=== PATIENT | female | born 1945 | race Caucasian/White ===

== ENCOUNTER 2016-12-05 14:30 | Inpatient (IN) | payer OTHER, MEDICAID ==
[~2016-12-05] VITALS: Ht 160 cm; Wt 86.3 kg
[2016-12-05] MEDS ORDERED: METFORMIN HCL500 MG PO (17:02)
[2016-12-05 17:03] LABS: BASOPHIL % 0.4 % (0-2); PLATELET COUNT 216 x10^3mcL (130-400); RED CELL DISTRIBUTION WIDTH 13.7 % (11.5-14.5)
[2016-12-05] MEDS ORDERED: LOSARTAN POTASS25 M1 PO (17:04)
[2016-12-05] MEDS ORDERED: ASPIRIN81 MG PO (17:04)
[2016-12-05] MEDS ORDERED: SIMVASTATIN10 M1 PO (17:04)
[2016-12-05 17:13] LABS: CALCIUM 8.7 mg/dL (8.5-10.1); CARBON DIOXIDE 30.2 mmol/L (21-32); CHLORIDE SERUM 105 mmol/L (98-107); CREATININE SERUM 0.6 mg/dL (0.6-1.0); GLUCOSE SERUM 87 mg/dL (74-106); POTASSIUM SERUM 3.6 mmol/L (3.5-5.1); SODIUM SERUM 139 mmol/L (136-145)
[2016-12-05 17:28] LABS: microscopic required? NO
[2016-12-05 17:34] LABS: ALKALINE PHOSPHATASE 66 U/L (46-116); ALT/SGPT 23 U/L (14-59); AST/SGOT 20 U/L (15-37); BILIRUBIN TOTAL 0.8 mg/dL (0.20-1.00); TOTAL PROTEIN, SERUM 6.7 g/dL (6.4-8.2)
[2016-12-05 17:34] LABS: UA SPECIFIC GRAVITY 1.015 (1.005-1.035); urine erythrocyte NEGATIVE (NEGATIVE)
[2016-12-05 17:35] LABS: ALBUMIN 3.3 g/dL (3.4-5.0)
[2016-12-05 19:57] LABS: CHOLESTEROL/HDL RATIO 3.1; MAGNESIUM 2.1 mg/dL (1.8-2.4); PHOSPHOROUS 4.2 mg/dL (2.5-4.9)
[2016-12-05 19:58] LABS: AMPHETAMINE QUAL UR NONE DETECTED (NEG <=1000)
[2016-12-05 20:06] VITALS: BP 114/63
[2016-12-05 20:06] LABS: T3 TOTAL 1.07 ng/mL
[2016-12-05 20:07] LABS: FREE T4 1.16 ng/dL (0.76-1.46); FREE THYROXINE INDEX 2.9 ug/dL (1.4-4.5); T4(THYROXINE) 8.2 ug/dL (4.7-13.3)
[2016-12-05 20:19] VITALS: Ht 160 cm; Wt 86.3 kg
[2016-12-05 22:19] VITALS: BP 104/50
[2016-12-06 05:47] VITALS: BP 114/51
[2016-12-06 06:22] LABS: BASOPHIL % 0.5 % (0-2); PLATELET COUNT 203 x10^3mcL (130-400); RED CELL DISTRIBUTION WIDTH 13.4 % (11.5-14.5)
[2016-12-06 06:29] LABS: CALCIUM 8.2 mg/dL (8.5-10.1); CARBON DIOXIDE 25.6 mmol/L (21-32); CHLORIDE SERUM 107 mmol/L (98-107); CREATININE SERUM 0.5 mg/dL (0.6-1.0); GLUCOSE SERUM 90 mg/dL (74-106); POTASSIUM SERUM 3.8 mmol/L (3.5-5.1); SODIUM SERUM 142 mmol/L (136-145)
[2016-12-06 08:53] VITALS: BP 150/69
[2016-12-06 13:41] VITALS: BP 146/83
[2016-12-06 18:06] VITALS: BP 127/56
[2016-12-06 21:16] VITALS: BP 113/54
[2016-12-07 05:39] VITALS: BP 126/67
[2016-12-07 06:22] LABS: CALCIUM 7.7 mg/dL (8.5-10.1); CARBON DIOXIDE 23.9 mmol/L (21-32); CHLORIDE SERUM 107 mmol/L (98-107); CREATININE SERUM 0.6 mg/dL (0.6-1.0); GLUCOSE SERUM 101 mg/dL (74-106); POTASSIUM SERUM 4.1 mmol/L (3.5-5.1); SODIUM SERUM 141 mmol/L (136-145)
[2016-12-07 06:39] LABS: BASOPHIL % 0.5 % (0-2); PLATELET COUNT 225 x10^3mcL (130-400); RED CELL DISTRIBUTION WIDTH 13.9 % (11.5-14.5)
[2016-12-07] MEDS ORDERED: GLUCOMETER (10:01)
[2016-12-07] MEDS ORDERED: LANCET DEVICE1 EACH SQ (10:03)
[2016-12-07] MEDS ORDERED: TEST STRIPS (10:04)
[2016-12-07 11:50] VITALS: BP 117/66
[2016-12-07 13:32] VITALS: BP 134/66
[2016-12-07 14:13] VITALS: BP 117/66
== END 2016-12-07 16:00 | disposition home health service (06) | DRG 64 ==
LOC: ED 14:30 → DU 17:38
PROVIDERS: Emergency Medicine; ADMIT Family Medicine
DX: I63.9 Cerebral infarction, unspecified (principal); N17.0 Acute kidney failure with tubular necrosis; G82.20 Paraplegia, unspecified; E44.0 Moderate protein-calorie malnutrition; D68.69 Other thrombophilia; R29.810 Facial weakness; I10 Essential (primary) hypertension; E11.59 Type 2 diabetes mellitus with other circulatory complications; G47.30 Sleep apnea, unspecified; M47.892 Other spondylosis, cervical region; M81.0 Age-related osteoporosis without current pathological fracture; E78.5 Hyperlipidemia, unspecified; Z79.82 Long term (current) use of aspirin; Z68.33 Body mass index [BMI] 33.0-33.9, adult; Z79.84 Long term (current) use of oral hypoglycemic drugs
CPT/HCPCS: 82962; 83880; 84439; 97110-GP; 97116-GP; J1956; J3490; J7030; Q0092

== ENCOUNTER 2017-03-08 20:30 | Emergency (ER) | payer OTHER, MEDICAID ==
[~2017-03-08 20:30] MED LIST: ASPIRIN81 MG PO; GLUCOMETER; LANCET DEVICE1 EACH SQ; LOSARTAN POTASS25 M1 PO; METFORMIN HCL500 MG PO; SIMVASTATIN10 M1 PO; TEST STRIPS
[2017-03-09 02:51] LABS: PLATELET COUNT 271 x10^3mcL (130-400); RED CELL DISTRIBUTION WIDTH 12.4 % (11.5-14.5)
[2017-03-09 02:52] LABS: BASOPHIL % 3.9 % (0-2)
[2017-03-09 02:59] LABS: CALCIUM 8.9 mg/dL (8.5-10.1); CARBON DIOXIDE 27.4 mmol/L (21-32); CHLORIDE SERUM 105 mmol/L (98-107); CREATININE SERUM 0.8 mg/dL (0.6-1.0); GLUCOSE SERUM 162 mg/dL (74-106); POTASSIUM SERUM 3.7 mmol/L (3.5-5.1); SODIUM SERUM 141 mmol/L (136-145)
[2017-03-09 03:03] LABS: ALBUMIN 3.6 g/dL (3.4-5.0); ALKALINE PHOSPHATASE 73 U/L (46-116); ALT/SGPT 22 U/L (14-59); AMYLASE 39 U/L (25-115); AST/SGOT 19 U/L (15-37); BILIRUBIN TOTAL 0.96 mg/dL (0.20-1.00); LIPASE 103 IU/L (73-393); TOTAL PROTEIN, SERUM 7.7 g/dL (6.4-8.2)
[2017-03-09 04:05] LABS: UA SPECIFIC GRAVITY 1.025 (1.005-1.035); microscopic required? YES; urine erythrocyte 3+ (NEGATIVE)
[2017-03-09 04:28] VITALS: BP 126/85
== END 2017-03-09 04:38 | disposition home or self-care (01) ==
LOC: ED 20:30
PROVIDERS: Emergency Medicine
DX: N20.0 Calculus of kidney (principal); E11.9 Type 2 diabetes mellitus without complications; I10 Essential (primary) hypertension; E78.5 Hyperlipidemia, unspecified; Z79.84 Long term (current) use of oral hypoglycemic drugs; Z79.899 Other long term (current) drug therapy
CPT/HCPCS: 83880; J1885; J2405; J7030

== ENCOUNTER 2018-09-03 09:30 | Emergency (ER) | payer OTHER ==
[~2018-09-03] VITALS: Ht 154.9 cm; Wt 86.6 kg
[2018-09-03 09:32] VITALS: Ht 154.9 cm; Wt 86.6 kg
[2018-09-03 10:01] LABS: BASOPHIL % 0.6 % (0-2); PLATELET COUNT 252 x10^3mcL (130-400); RED CELL DISTRIBUTION WIDTH 13.4 % (11.5-14.5)
[2018-09-03 10:18] LABS: CALCIUM 8.9 mg/dL (8.5-10.1); CARBON DIOXIDE 26.1 mmol/L (21-32); CHLORIDE SERUM 103 mmol/L (98-107); CREATININE SERUM 0.7 mg/dL (0.6-1.0); GLUCOSE SERUM 171 mg/dL (74-106); SODIUM SERUM 140 mmol/L (136-145)
[2018-09-03 10:23] LABS: ALBUMIN 3.6 g/dL (3.4-5.0); ALKALINE PHOSPHATASE 66 U/L (46-116); ALT/SGPT 29 U/L (14-59); AST/SGOT 26 U/L (15-37); BILIRUBIN TOTAL 0.9 mg/dL (0.20-1.00); LIPASE 129 IU/L (73-393); TOTAL PROTEIN, SERUM 7.7 g/dL (6.4-8.2)
[2018-09-03 13:30] VITALS: BP 134/75
== END 2018-09-03 13:30 | disposition home or self-care (01) ==
LOC: ED 09:30
PROVIDERS: Emergency Medicine
DX: K52.9 Noninfective gastroenteritis and colitis, unspecified (principal); I10 Essential (primary) hypertension; E11.9 Type 2 diabetes mellitus without complications; E78.5 Hyperlipidemia, unspecified; K21.9 Gastro-esophageal reflux disease without esophagitis; Z98.890 Other specified postprocedural states
CPT/HCPCS: 36415; Q0162; Q9967

== ENCOUNTER 2018-11-16 14:54 | Emergency (ER) | payer OTHER, BC | END 2018-11-16 17:12 | disposition left against medical advice (07) | LOC: ED 14:54 | DX: Z53.21 Procedure and treatment not carried out due to patient leaving prior to being seen by health care provider (principal) ==

== ENCOUNTER 2019-06-02 16:25 | Emergency (ER) | payer OTHER, BC ==
[~2019-06-02] VITALS: Ht 157.5 cm; Wt 85.7 kg
[2019-06-02 16:43] VITALS: Ht 157.5 cm; Wt 85.7 kg
[2019-06-02 17:30] LABS: microscopic required? NO
[2019-06-02 17:41] LABS: urine erythrocyte NEGATIVE (NEGATIVE)
[2019-06-02 17:45] LABS: BASOPHIL % 0.7 % (0-2); PLATELET COUNT 226 x10^3mcL (130-400); RED CELL DISTRIBUTION WIDTH 13.4 % (11.5-14.5)
[2019-06-02 17:49] LABS: CARBON DIOXIDE 29.5 mmol/L (21-32); CHLORIDE SERUM 103 mmol/L (98-107); CREATININE SERUM 0.6 mg/dL (0.6-1.0); GLUCOSE SERUM 112 mg/dL (74-106); POTASSIUM SERUM 3.8 mmol/L (3.5-5.1); SODIUM SERUM 141 mmol/L (136-145)
[2019-06-02 17:50] LABS: CALCIUM 9.1 mg/dL (8.5-10.1)
[2019-06-02 19:22] VITALS: BP 150/76
== END 2019-06-02 19:22 | disposition home or self-care (01) ==
LOC: ED 16:25
PROVIDERS: Student in an Organized Health Care Education/Training Program
DX: B34.9 Viral infection, unspecified (principal); I10 Essential (primary) hypertension; E11.9 Type 2 diabetes mellitus without complications; E78.5 Hyperlipidemia, unspecified; K21.9 Gastro-esophageal reflux disease without esophagitis; Z98.890 Other specified postprocedural states
CPT/HCPCS: 36415; 87804

== ENCOUNTER 2019-10-29 22:08 | Inpatient (IN) | payer OTHER, BC ==
[~2019-10-29] VITALS: Ht 160 cm; Wt 87.5 kg
[~2019-10-29 22:08] MED LIST changes: +ASPIRIN CHILDRE81 MG PO; -ASPIRIN81 MG PO; +METFORMIN HCL500 M4 PO; -METFORMIN HCL500 MG PO
[2019-10-29 22:18] VITALS: Ht 160 cm; Wt 87.5 kg
[2019-10-29 23:54] LABS: CALCIUM 8.5 mg/dL (8.5-10.1); CARBON DIOXIDE 31.4 mmol/L (21-32); CHLORIDE SERUM 102 mmol/L (98-107); CREATININE SERUM 0.7 mg/dL (0.6-1.0); GLUCOSE SERUM 138 mg/dL (74-106); POTASSIUM SERUM 4.1 mmol/L (3.5-5.1); SODIUM SERUM 139 mmol/L (136-145)
[2019-10-29 23:58] LABS: BASOPHIL % 0.3 % (0-2); PLATELET COUNT 250 x10^3mcL (130-400); RED CELL DISTRIBUTION WIDTH 13.1 % (11.5-14.5)
[2019-10-29 23:59] LABS: ALBUMIN 3.3 g/dL (3.4-5.0); ALKALINE PHOSPHATASE 67 U/L (46-116); ALT/SGPT 27 U/L (14-59); AST/SGOT 20 U/L (15-37); BILIRUBIN TOTAL 0.6 mg/dL (0.20-1.00); LIPASE 85 IU/L (73-393)
[2019-10-30 00:31] LABS: microscopic required? NO
[2019-10-30 00:41] LABS: urine erythrocyte NEGATIVE (NEGATIVE)
[2019-10-30 02:04] LABS: CHOLESTEROL/HDL RATIO 3.3
[2019-10-30] MEDS ORDERED: PROAIR HFA8.5 GM (06:52)
[2019-10-30 07:39] LABS: BASOPHIL % 0.3 % (0-2); PLATELET COUNT 233 x10^3mcL (130-400); RED CELL DISTRIBUTION WIDTH 13.3 % (11.5-14.5)
[2019-10-30 07:50] LABS: CALCIUM 8.5 mg/dL (8.5-10.1); CARBON DIOXIDE 30.9 mmol/L (21-32); CHLORIDE SERUM 103 mmol/L (98-107); CREATININE SERUM 0.4 mg/dL (0.6-1.0); GLUCOSE SERUM 118 mg/dL (74-106); MAGNESIUM 2.1 mg/dL (1.8-2.4); PHOSPHOROUS 3.6 mg/dL (2.5-4.9); SODIUM SERUM 140 mmol/L (136-145)
[2019-10-30 09:41] VITALS: BP 133/65
[2019-10-30 12:22] VITALS: BP 114/63
[2019-10-30 16:04] VITALS: BP 131/60
[2019-10-30 19:44] VITALS: BP 124/57
[2019-10-31 06:02] VITALS: BP 143/67
[2019-10-31 07:22] LABS: BASOPHIL % 0.4 % (0-2); PLATELET COUNT 234 x10^3mcL (130-400); RED CELL DISTRIBUTION WIDTH 13.1 % (11.5-14.5)
[2019-10-31 07:30] LABS: CALCIUM 8.1 mg/dL (8.5-10.1); CARBON DIOXIDE 27.4 mmol/L (21-32); CHLORIDE SERUM 104 mmol/L (98-107); CREATININE SERUM 0.6 mg/dL (0.6-1.0); GLUCOSE SERUM 87 mg/dL (74-106); MAGNESIUM 2.1 mg/dL (1.8-2.4); PHOSPHOROUS 3.9 mg/dL (2.5-4.9); POTASSIUM SERUM 3.9 mmol/L (3.5-5.1); SODIUM SERUM 141 mmol/L (136-145)
[2019-10-31 08:05] VITALS: BP 147/72
[2019-10-31] MEDS ORDERED: PROTONIX20 MG PO (11:49)
[2019-10-31 12:57] VITALS: BP 117/52
[2019-10-31 13:03] VITALS: BP 144/59
== END 2019-10-31 14:48 | disposition home or self-care (01) | DRG 378 ==
LOC: ED 22:08 → MU 10-30 00:56
PROVIDERS: Emergency Medicine; Internal Medicine Gastroenterology; ADMIT Student in an Organized Health Care Education/Training Program; ATTEND Student in an Organized Health Care Education/Training Program
PROC: 0DB68ZX Excision of Stomach, Via Natural or Artificial Opening Endoscopic, Diagnostic (ICD-10-PCS; principal; 2019-10-31 10:00)
DX: K29.01 Acute gastritis with bleeding (principal); K56.609 Unspecified intestinal obstruction, unspecified as to partial versus complete obstruction; K21.9 Gastro-esophageal reflux disease without esophagitis; I10 Essential (primary) hypertension; E11.9 Type 2 diabetes mellitus without complications; E78.5 Hyperlipidemia, unspecified; M81.0 Age-related osteoporosis without current pathological fracture; E66.9 Obesity, unspecified; Z71.3 Dietary counseling and surveillance; Z68.34 Body mass index [BMI] 34.0-34.9, adult
CPT/HCPCS: 43235; 82962; 83880; 90658; G0378; J1200; J1610; J1815; J1885; J2250; J2310; J2405; J3010; J3490; J7030; Q0092